=== PATIENT | male | born 1970 | race American Indian/Alaskan Native ===

== ENCOUNTER 2019-05-10 12:02 | Outpatient (CLI) | payer OTHER ==
--- NOTE | 2019-05-10 12:51 | XRay Report ---
Left foot: Pain. There is mild edema of the dorsal soft tissues of the midfoot. There are no effusions. The bony and joint structures appear unremarkable. The bones are well-mineralized and the joints are well preserved. No fractures. Impression: Nonspecific mild edema.
== END 2019-05-10 12:03 | disposition home or self-care (01) ==
LOC: XRAY 12:02
PROVIDERS: ATTEND Internal Medicine
DX: M25.475 Effusion, left foot (principal)